=== PATIENT | male | born 1995 | race Two or more races ===

== ENCOUNTER 2021-08-26 18:27 | Emergency (ER) | payer OTHER | END 2021-08-26 19:45 | disposition home or self-care (01) | LOC: FB.ED 18:27 | DX: R07.81 Pleurodynia (principal); M25.511 Pain in right shoulder; V49.40XA Driver injured in collision with unspecified motor vehicles in traffic accident, initial encounter; Y92.410 Unspecified street and highway as the place of occurrence of the external cause | CPT/HCPCS: 71046; 99283; 99284-25 ==